=== PATIENT | female | born 2000 | race African-American/Black ===

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

== ENCOUNTER 2022-05-25 10:31 | Observation (INO) | payer MEDICAID ==
[~2022-05-25] VITALS: Ht 170.2 cm; Wt 99.8 kg
[2022-05-25] MEDS ORDERED: LACTATED RINGERS 1,000 ML IV SCH (11:30)
[2022-05-25 11:52] LABS: HEMOGLOBIN. 12.2 g/dL (12.0-16.0); MEAN CORPUSCULAR HEMOGLOBIN 31.1 pg (28.0-32.0); MEAN CORPUSCULAR VOLUME 89.5 fL (81.0-99.0); MEAN PLATELET VOLUME 8.5 fl (7.4-10.4); PLATELET 225 x1000/uL (130-400); RED BLOOD CELL COUNT 3.91 mill/uL (4.2-5.4); RED CELL DISTRIBUTION WIDTH 13.4 % (11.6-14.6)
[2022-05-25 11:53] LABS: CLARITY URINE TURBID (CLEAR); COLOR URINE YELLOW (YELLOW); KETONES URINE NEGATIVE (NEGATIVE); LEUKOCYTE ESTERASE URINE 3+ (NEGATIVE); NITRITE URINE NEGATIVE (NEGATIVE); OCCULT BLOOD URINE 1+ (NEGATIVE); PROTEIN URINE TRACE (NEGATIVE); SPECIFIC GRAVITY URINE 1.013 (1.005-1.030)
[2022-05-25 12:20] LABS: PLATELET ESTIMATE NORMAL
[2022-05-25] MEDS ORDERED: CEFAZOLIN 2,000 MG in DEXT 5% WATER 100 ML IV ONE (12:45)
== END 2022-05-25 14:45 | disposition home or self-care (01) ==
LOC: 8 EST LDRP 10:31
PROVIDERS: ADMIT Obstetrics & Gynecology; ATTEND Obstetrics & Gynecology
DX: O98.512 Other viral diseases complicating pregnancy, second trimester (principal); U07.1 COVID-19; O26.892 Other specified pregnancy related conditions, second trimester; R10.9 Unspecified abdominal pain; Z3A.22 22 weeks gestation of pregnancy
CPT/HCPCS: 36415; 76805; 76817; 81003; 85025; 87086; 87426; 96361; 96365; G0378; J0690; J7060; 96360; 99281; J7120

== ENCOUNTER 2022-06-12 01:01 | Emergency (ER) | payer MEDICAID ==
[~2022-06-12] VITALS: Ht 167.6 cm; Wt 91.0 kg
[2022-06-12] MEDS ORDERED: SODIUM CHLORIDE 0.9% 1,000 ML IV ONE (01:30)
[2022-06-12 01:53] LABS: BASOPHILS % 0.3 % (0.0-2.0); EOSINOPHILS % 2.4 % (0.0-5.0); HEMATOCRIT. 30.6 % (36.0-48.0); HEMOGLOBIN. 10.3 g/dL (12.0-16.0); LYMPHOCYTES % 19.2 % (20.0-50.0); MEAN CORPUSCULAR HEMOGLOBIN 30.9 pg (28.0-32.0); MEAN CORPUSCULAR VOLUME 91.4 fL (81.0-99.0); MEAN PLATELET VOLUME 8.5 fl (7.4-10.4); MONOCYTES % 11.4 % (2.0-8.0); NEUTROPHILS % 66.7 % (40.0-76.0); PLATELET 219 x1000/uL (130-400); RED BLOOD CELL COUNT 3.35 mill/uL (4.2-5.4); RED CELL DISTRIBUTION WIDTH 13.4 % (11.6-14.6)
[2022-06-12 01:57] LABS: CHLORIDE 106 mEq/L (98-107)
[2022-06-12 02:37] LABS: CLARITY URINE CLEAR (CLEAR); COLOR URINE YELLOW (YELLOW); KETONES URINE TRACE (NEGATIVE); LEUKOCYTE ESTERASE URINE NEGATIVE (NEGATIVE); NITRITE URINE NEGATIVE (NEGATIVE); OCCULT BLOOD URINE NEGATIVE (NEGATIVE); PH URINE 5.5 (4.5-8.0); PROTEIN URINE 1+ (NEGATIVE); SPECIFIC GRAVITY URINE 1.025 (1.005-1.030)
[2022-06-12 05:30] VITALS: BP 98/66
== END 2022-06-12 06:05 | disposition home or self-care (01) ==
LOC: ER 01:01
DX: O26.892 Other specified pregnancy related conditions, second trimester (principal); Z3A.25 25 weeks gestation of pregnancy
CPT/HCPCS: 36415; 76805; 80053; 81003; 83690; 85025; 93005; 99285; J7030

== ENCOUNTER 2022-08-21 20:50 | Observation (INO) | payer MEDICAID ==
[~2022-08-21] VITALS: Ht 170.2 cm; Wt 104.3 kg
[2022-08-21] MEDS ORDERED: PNV1TABL76 PO (21:59)
== END 2022-08-22 01:00 | disposition home or self-care (01) ==
LOC: 8 EST LDRP 20:50
PROVIDERS: ADMIT Specialist; ATTEND Specialist
DX: O62.9 Abnormality of forces of labor, unspecified (principal); Z3A.35 35 weeks gestation of pregnancy
CPT/HCPCS: 59025; G0378

== ENCOUNTER 2022-09-18 18:40 | Observation (INO) | payer MEDICAID ==
[~2022-09-18 18:40] MED LIST changes: +PNV1TABL76 PO
[2022-09-19] MEDS ORDERED: CETI10TA6 PO (00:01)
[2022-09-19] MEDS ORDERED: FAMO20TA8 PO (00:01)
== END 2022-09-18 20:45 | disposition home or self-care (01) ==
LOC: 8 EST A/PP 18:40
PROVIDERS: ADMIT Specialist; ATTEND Specialist
DX: O26.893 Other specified pregnancy related conditions, third trimester (principal); L50.9 Urticaria, unspecified; R10.9 Unspecified abdominal pain; O62.9 Abnormality of forces of labor, unspecified; O99.891 Other specified diseases and conditions complicating pregnancy; M54.50 Low back pain, unspecified; Z3A.39 39 weeks gestation of pregnancy
CPT/HCPCS: 59025; 99281; G0378

== ENCOUNTER 2022-09-18 21:01 | Emergency (ER) | payer MEDICAID ==
[~2022-09-18] VITALS: Ht 170.2 cm; Wt 110.5 kg
[2022-09-18] MEDS ORDERED: DIPHENHYDRAMINE 50MG/ML VIAL IM ONE (23:00)
[2022-09-18] MEDS ORDERED: METHYLPREDNISOLONE SOD SUCC 125 MG/2 ML VIAL IV ONE (23:00)
[2022-09-18] MEDS ORDERED: FAMOTIDINE 20MG TABLET PO ONE (23:00)
[2022-09-18] MEDS ORDERED: METHYLPREDNISOLONE SOD SUCC 125 MG/2 ML VIAL IM STA (23:28)
[2022-09-18] MEDS ORDERED: ACETAMINOPHEN 325MG TABLET PO STA (23:32)
[2022-09-19] MEDS ORDERED: FAMO20TA8 PO (00:01)
[2022-09-19] MEDS ORDERED: CETI10TA6 PO (00:01)
[2022-09-19 00:14] VITALS: BP 115/78
== END 2022-09-19 00:15 | disposition home or self-care (01) ==
LOC: ER 21:01
DX: L50.6 Contact urticaria (principal); R00.0 Tachycardia, unspecified
CPT/HCPCS: 96372; 99284; J1200; J2930

== ENCOUNTER 2022-10-03 11:50 | Inpatient (IN) | payer MEDICAID ==
[~2022-10-03] VITALS: Ht 170.2 cm; Wt 110.2 kg
[~2022-10-03 11:50] MED LIST changes: +CETI10TA6 PO; +FAMO20TA8 PO
[2022-10-03] MEDS ORDERED: METHYLERGONOVINE MALEATE 0.2 MG/ML IM PRN (13:30)
[2022-10-03] MEDS ORDERED: LIDOCAINE HCL 1% 10 MG/ML 10ML VIAL IJ SCH (13:30)
[2022-10-03] MEDS ORDERED: NALOXONE HCL 0.4 MG/ML 1ML VIAL IM PRN (13:30)
[2022-10-03] MEDS ORDERED: CARBOPROST TROMETHAMINE 250 MCG/ML AMPUL IM PRN (13:30)
[2022-10-03] MEDS ORDERED: PENICILLIN G POTASSIUM 5 MMU in DEXT 5% WATER 100 ML IV NR (14:00)
[2022-10-03] MEDS: LACTATED RINGERS 1,000 ML IV SCH ×2 (16:00→23:20)
[2022-10-03] MEDS: MISOPROSTOL 100MCG TABLET VG SCH ×2 (16:10→20:18)
[2022-10-03 16:44] LABS: CLARITY URINE TURBID (CLEAR); COLOR URINE YELLOW (YELLOW); KETONES URINE NEGATIVE (NEGATIVE); LEUKOCYTE ESTERASE URINE 3+ (NEGATIVE); NITRITE URINE NEGATIVE (NEGATIVE); OCCULT BLOOD URINE 1+ (NEGATIVE); PROTEIN URINE 1+ (NEGATIVE); SPECIFIC GRAVITY URINE 1.014 (1.005-1.030)
[2022-10-03 16:47] LABS: BASOPHILS % 0.3 % (0.0-2.0); EOSINOPHILS % 3.9 % (0.0-5.0); HEMATOCRIT. 32.4 % (36.0-48.0); LYMPHOCYTES % 18.4 % (20.0-50.0); MEAN CORPUSCULAR VOLUME 88.1 fL (81.0-99.0); MEAN PLATELET VOLUME 8.8 fl (7.4-10.4); MONOCYTES % 12.1 % (2.0-8.0); NEUTROPHILS % 65.3 % (40.0-76.0); PLATELET 204 x1000/uL (130-400); RED BLOOD CELL COUNT 3.67 mill/uL (4.2-5.4)
[2022-10-03 16:55] LABS: INR 0.9; PARTIAL THROMBOPLASTIN TIME 27.5 sec (23.4-31.0); PROTHROMBIN TIME 9.9 sec (9.6-11.0)
[2022-10-03 17:09] LABS: *AMPHETAMINES SCREEN URINE NEGATIVE (NEGATIVE); *BARBITURATES SCREEN URINE NEGATIVE (NEGATIVE); *BENZODIAZEPINES SCREEN URINE NEGATIVE (NEGATIVE); *COCAINE SCREEN URINE NEGATIVE (NEGATIVE); CANNABINOID URINE SCREEN NEGATIVE (NEGATIVE); METHADONE URINE SCREEN NEGATIVE (NEGATIVE); OPIATES URINE SCREEN NEGATIVE (NEGATIVE); PHENCYCLIDINE URINE SCREEN NEGATIVE (NEGATIVE)
[2022-10-03 18:07] LABS: HEPATITIS B SURFACE ANTIGEN NEGATIVE
[2022-10-03] MEDS: BUTORPHANOL TARTRATE 2 MG/ML VIAL IV PRN (22:13)
[2022-10-04] MEDS: MISOPROSTOL 100MCG TABLET VG SCH ×4 (00:09→10:29)
[2022-10-04] MEDS: BUTORPHANOL TARTRATE 2 MG/ML VIAL IV PRN ×3 (01:06→11:07)
[2022-10-04] MEDS: LACTATED RINGERS 1,000 ML IV SCH ×4 (08:55→23:14)
[2022-10-04] MEDS: PENICILLIN G POTASSIUM 2.5 MMU in DEXTROSE 5% WATER 50 ML IV SCH ×3 (09:12→17:19)
[2022-10-04] MEDS ORDERED: ROPIVACAINE HCL/PF EPIDURAL 200 ML EPI ONE (16:38)
[2022-10-04] MEDS: OXYTOCIN 30 UNITS/500ML NS PMX 500 ML IV SCH ×2 (17:18→23:18)
[2022-10-04] MEDS ORDERED: RHO(D) IMMUNE GLOBULIN 300 MCG/SYR IM PRN (20:45)
[2022-10-04] MEDS ORDERED: HEMORRHOIDAL SUPP PR PRN (20:45)
[2022-10-04] MEDS ORDERED: IBUPROFEN 400MG TABLET PO PRN (20:45)
[2022-10-04] MEDS ORDERED: BENZOCAINE/LANOLIN/ALOE VERA SPRAY TOP PRN (20:45)
[2022-10-04] MEDS ORDERED: ACETAMINOPHEN WITH CODEINE 300/30MG TABLET PO PRN (20:45)
[2022-10-04] MEDS ORDERED: OXYTOCIN 30 UNITS/500ML NS PMX 500 ML IV SCH (20:45)
[2022-10-04] MEDS ORDERED: LANOLIN OINT 7GM TUBE TOP PRN (20:45)
[2022-10-04] MEDS ORDERED: GLYCERIN/WITCH HAZEL LEAF MEDICATED PAD TOP PRN (20:45)
[2022-10-04] MEDS ORDERED: DIPHENHYDRAMINE 25MG CAPSULE PO PRN (20:45)
[2022-10-04] MEDS ORDERED: DOCUSATE SODIUM 100MG CAPSULE PO SCH (21:00)
[2022-10-04] MEDS ORDERED: NALOXONE HCL 0.4MG/ML VIAL IV PRN (21:00)
[2022-10-04 22:45] VITALS: BP 119/71
[2022-10-04] MEDS: IBUPROFEN 800MG TABLET PO PRN (23:16)
[2022-10-04 23:45] VITALS: BP 109/61
[2022-10-05 05:00] VITALS: BP 110/55
[2022-10-05] MEDS: IBUPROFEN 800MG TABLET PO PRN ×3 (05:10→22:04)
[2022-10-05 07:11] LABS: BASOPHILS % 0.2 % (0.0-2.0); EOSINOPHILS % 1.5 % (0.0-5.0); HEMATOCRIT. 30.6 % (36.0-48.0); HEMOGLOBIN. 10.3 g/dL (12.0-16.0); LYMPHOCYTES % 16.7 % (20.0-50.0); MEAN CORPUSCULAR HEMOGLOBIN 29.9 pg (28.0-32.0); MEAN PLATELET VOLUME 8.9 fl (7.4-10.4); MONOCYTES % 13.1 % (2.0-8.0); NEUTROPHILS % 68.5 % (40.0-76.0); PLATELET 193 x1000/uL (130-400); RED BLOOD CELL COUNT 3.44 mill/uL (4.2-5.4); RED CELL DISTRIBUTION WIDTH 14.1 % (11.6-14.6)
[2022-10-05] MEDS: MAGNESIUM/ALUMINUM HYDROXIDE/SIMETHICONE 30ML UDC PO SCH ×3 (07:30→17:24)
[2022-10-05] MEDS: FERROUS SULFATE 325MG TABLET PO SCH ×3 (07:30→17:24)
[2022-10-05 08:00] VITALS: BP 105/52
[2022-10-05] MEDS: PRENATAL VIT/FE FUMARATE/FA TABLET PO SCH (09:00)
[2022-10-05 15:48] VITALS: BP 100/58
[2022-10-05 20:00] VITALS: BP 109/62
[2022-10-06 04:00] VITALS: BP 104/52
[2022-10-06] MEDS: IBUPROFEN 800MG TABLET PO PRN (04:03)
[2022-10-06] MEDS ORDERED: DIPHENHYDRAMINE 25MG CAPSULE PO NR (06:30)
[2022-10-06 06:54] VITALS: BP 114/77
[2022-10-06 08:00] VITALS: BP 114/77
[2022-10-06] MEDS: PRENATAL VIT/FE FUMARATE/FA TABLET PO SCH (08:27)
[2022-10-06] MEDS: FERROUS SULFATE 325MG TABLET PO SCH (08:27)
[2022-10-06] MEDS: MAGNESIUM/ALUMINUM HYDROXIDE/SIMETHICONE 30ML UDC PO SCH (08:27)
== END 2022-10-06 11:55 | disposition home or self-care (01) | DRG 560 ==
LOC: OPOBV 11:50 → EDSTATUS 11:59 → OBSVTOIN 12:00 → 8 EST LDRP 12:00 → 8EST 10-04 22:40
PROVIDERS: ADMIT Obstetrics & Gynecology; ATTEND Obstetrics & Gynecology
PROC: 10E0XZZ Delivery of Products of Conception, External Approach (ICD-10-PCS; principal; 2022-10-04)
PROC: 0KQM0ZZ Repair Perineum Muscle, Open Approach (ICD-10-PCS; 2022-10-04)
PROC: 3E0R3BZ Introduction of Anesthetic Agent into Spinal Canal, Percutaneous Approach (ICD-10-PCS; 2022-10-04)
PROC: 00HU33Z Insertion of Infusion Device into Spinal Canal, Percutaneous Approach (ICD-10-PCS; 2022-10-04)
DX: O48.0 Post-term pregnancy (principal); Z37.0 Single live birth; O41.03X0 Oligohydramnios, third trimester, not applicable or unspecified; Z20.822 Contact with and (suspected) exposure to COVID-19; O70.1 Second degree perineal laceration during delivery; O99.824 Streptococcus B carrier state complicating childbirth; Z3A.40 40 weeks gestation of pregnancy; Z79.899 Other long term (current) drug therapy
CPT/HCPCS: 36415; 76805; 76818; 80305; 81003; 85025; 86592; 86703; 86762; 86850; 86900; 87340; 87426; 99281; J0595; J2540; J2795; J7060; J7120; Q0163; A4315; J2590

== ENCOUNTER 2024-04-08 22:18 | Emergency (ER) | payer MEDICAID ==
[~2024-04-08] VITALS: Ht 170.2 cm; Wt 91.0 kg
[2024-04-08 22:24] VITALS: O2SAT 100
[2024-04-09] MEDS: ACETAMINOPHEN 325MG TABLET PO ONE ×2 (00:12→01:02)
[2024-04-09 01:07] LABS: CLARITY URINE CLEAR (CLEAR); COLOR URINE YELLOW (YELLOW); GLUCOSE URINE NEGATIVE (NEGATIVE); KETONES URINE NEGATIVE (NEGATIVE); LEUKOCYTE ESTERASE URINE 1+ (NEGATIVE); NITRITE URINE NEGATIVE (NEGATIVE); OCCULT BLOOD URINE NEGATIVE (NEGATIVE); PH URINE 7.5 (4.5-8.0); PROTEIN URINE TRACE (NEGATIVE); SPECIFIC GRAVITY URINE 1.007 (1.005-1.030)
[2024-04-09 01:13] VITALS: TEMP 99.4
[2024-04-09] MEDS ORDERED: NITR-87 MT (01:31)
[2024-04-09] MEDS ORDERED: IBUP-2028 MT (01:31)
[2024-04-09 02:12] VITALS: BP 101/60; PULSE 95; RESP 14
[2024-04-09 03:08] LABS: SQUAMOUS EPITHELIAL CELL URINE FEW /lpf (RARE/1+)
[2024-04-09 03:10] LABS: RBC URINE 0-2 /hpf (0-2)
[2024-04-09 03:11] LABS: BACTERIA URINE NONE SEEN
== END 2024-04-09 02:15 | disposition home or self-care (01) ==
LOC: ER 22:18
DX: N39.0 Urinary tract infection, site not specified (principal); B34.9 Viral infection, unspecified; Z20.822 Contact with and (suspected) exposure to COVID-19
CPT/HCPCS: 71045; 81003; 81025; 87070; 87426; 87430; 99285